=== PATIENT | male | born 1980 | race Caucasian/White ===

== ENCOUNTER 2018-03-18 07:22 | Inpatient (IN) | payer MEDICARE ==
[~2018-03-18] VITALS: Ht 188 cm; Wt 90.7 kg
--- NOTE | ~2018-03-18 | MORECARE ---
CASE MANAGEMENT DISCHARGE SUMMARY PATIENT: RUMA CARROLL UNIT: [id number] ADM DATE: 03/18/18 AGE: 37 : 84 SEX: M ROOM/BED: D.1210 AUTHOR: WAN WILSON PHYSICIAN: REFERRING PHYSICIAN: RENEE MCHUGH MD DATE OF SERVICE: 03/20/18 Discharge Plan Patient Name: RUMA CARROLL [facility] [facility] 1980 Planned Disposition: Home Anticipated Discharge Date: Discharge Date: Expected LOS: Initial Reviewer: [email or web address] Initial Review Date: 03/18/2018 Generated: 03/20/18 6:53 pm DCPIA - Discharge Planning Initial Assessment Updated by [email or web address]: Natali Dick on 03/20/18 5:52 pm * Is the patient Alert and Oriented? Yes * How many steps to enter\exit or inside your home? * PCP No PCP * [facility] [address] * Preadmission Environment Home with Family * ADLs Independent * Equipment Crutch * Other Equipment shower chair * List name and contact numbers for known caregivers / representatives who currently or will assist patient after discharge: afua álvarez mother [phone] * Verbal permission to speak to the caregivers and representatives has been obtained from the patient. Yes * Community resources currently utilized None * Additional services required to return to the preadmission environment? No * Can the patient safely return to the preadmission environment? Yes * Has this patient been hospitalized within the prior 30 days at any hospital? No Patient Name: RUMA CARROLL Page [id number] at 1753 All edits/amendments must be made on the electronic document DICTATION DATE: 03/20/181752 SENIOR MEDIA BUYER: CORA 03/20/181752 RPT#: [id number] DC DATE: STATUS: ADM IN [facility] [address] [place] [address] END OF REPORT
--- NOTE | ~2018-03-18 | MORECARE ---
CASE MANAGEMENT DISCHARGE SUMMARY PATIENT: RUMA CARROLL UNIT: [id number] ADM DATE: 03/18/18 AGE: 37 : 84 SEX: M ROOM/BED: D.1210 AUTHOR: STEVE,DOC PHYSICIAN: REFERRING PHYSICIAN: RENEE MCHUGH MD DATE OF SERVICE: 03/20/18 Discharge Plan Patient Name: RUMA CARROLL Facility: [facility]:[place] : 1980 Planned Disposition: Home Anticipated Discharge Date: Discharge Date: Expected LOS: Initial Reviewer: [email or web address] Initial Review Date: 03/18/2018 Generated: 03/20/18 7:00 pm Comments DCP- Discharge Planning Updated by [email or web address]: Natali Dick on 03/20/18 5:[address] Patient Name: RUMA CARROLL Admission Status: ER Accout number: [id number] Admission Date: 03-18-2018 : 1980 Admission Diagnosis:INFECTION OF AMPUTATION STUMP, LEFT LOWER EXTREMITY Attending: RENEE MCHUGH Current LOS: 2 Anticipated DC Date: Planned Disposition: Home Primary Insurance: MEDICARE A & B Discharge Planning Comments: CM met with patient at bedside after obtaining verbal consent. Patient states he plans on returning home after discharge with his family. Patient denies any discharge needs at this time. Patient request for CM to write letter to ana daniel because he was to appear in court 03/18/18 day of admission. CM did write letter and email it to ana daniel and gave patient copy of letter for his records. CM will continue to follow and assist as needed with discharge planning / needs. Cullet Crusher And Washer: Natali Dick DCPIA - Discharge Planning Initial Assessment Updated by [email or web address]: Natali Dick on 03/20/18 5:52 pm * Is the patient Alert and Oriented? Yes * How many steps to enter\exit or inside your home? * PCP No PCP * [facility] [address] * Preadmission Environment Home with Family * ADLs Independent * Equipment Crutch * Other Equipment shower chair * List name and contact numbers for known caregivers / representatives who currently or will assist patient after discharge: afua álvarez mother [phone] * Verbal permission to speak to the caregivers and representatives has been obtained from the patient. Yes * Community resources currently utilized None * Additional services required to return to the preadmission environment? No * Can the patient safely return to the preadmission environment? Yes * Has this patient been hospitalized within the prior 30 days at any hospital? No Last DP export: 03/20/18 4:53 p Patient Name: RUMA CARROLL Page [id number] at 1800 All edits/amendments must be made on the electronic document DICTATION DATE: 03/20/18 1800 PRODUCTION SUPPORT SPECIALIST: CORA 03/20/18 1800 RPT#: [id number] DC DATE: STATUS: ADM IN [facility] [address] [place] [address] END OF REPORT
--- NOTE | ~2018-03-18 | MORECARE ---
CASE MANAGEMENT DISCHARGE SUMMARY PATIENT: RUMA CARROLL UNIT: [id number] ADM DATE: 03/18/18 AGE: 37 : 84 SEX: M ROOM/BED: D.1210 AUTHOR: STEVEDOC PHYSICIAN: REFERRING PHYSICIAN: RENEE MCHUGH MD DATE OF SERVICE: 03/23/18 Discharge Plan Patient Name: URMA CARROLL Facility: [facility]:[place] : 1980 Planned Disposition: Home Anticipated Discharge Date: Discharge Date: 03/22/2018 Expected LOS: Initial Reviewer: [email or web address] Initial Review Date: 03/18/2018 Generated: 03/23/18 10:25 am Comments DCP- Discharge Planning Updated by [email or web address]: Natali Dick on 03/20/18 5:[address] Patient Name: RUMA CARROLL Admission Status: ER Accout number: [id number] Admission Date: 03-18-2018 : 1980 Admission Diagnosis:INFECTION OF AMPUTATION STUMP, LEFT LOWER EXTREMITY Attending: RENEE MCHUGH Current LOS: 2 Anticipated DC Date: Planned Disposition: Home Primary Insurance: MEDICARE A & B Discharge Planning Comments: CM met with patient at bedside after obtaining verbal consent. Patient states he plans on returning home after discharge with his family. Patient denies any discharge needs at this time. Patient request for CM to write letter to ana daniel because he was to appear in court 03/18/18 day of admission. CM did write letter and email it to ana daniel and gave patient copy of letter for his records. CM will continue to follow and assist as needed with discharge planning / needs. Rubber Goods Supervisor: Natali Dick DCPIA - Discharge Planning Initial Assessment Updated by [email or web address]: Natali Dick on 03/20/18 5:52 pm * Is the patient Alert and Oriented? Yes * How many steps to enter\exit or inside your home? * PCP No PCP * [facility] [address] * Preadmission Environment Home with Family * ADLs Independent * Equipment Crutch * Other Equipment shower chair * List name and contact numbers for known caregivers / representatives who currently or will assist patient after discharge: afua álvarez mother [phone] * Verbal permission to speak to the caregivers and representatives has been obtained from the patient. Yes * Community resources currently utilized None * Additional services required to return to the preadmission environment? No * Can the patient safely return to the preadmission environment? Yes * Has this patient been hospitalized within the prior 30 days at any hospital? No Last DP export: 03/20/18 5:00 p Patient Name: RUMA CARROLL Page [id number] at 0925 All edits/amendments must be made on the electronic document DICTATION DATE: 03/23/18923 TALK SHOW HOST: CORA 03/23/18923 RPT#: [id number] DC DATE:03/22/18 STATUS: DIS IN [facility] [address] [place] [address] END OF REPORT
[2018-03-18 08:37] LABS: ALBUMIN 3.3 g/dL (3.4-5.0); ALKALINE PHOSPHATASE 73 U/L (46-116); ALT (SGPT) 26 U/L (10-68); BILIRUBIN - TOTAL 0.72 mg/dL (0.2-1.3); CALC OSMOLALITY 259 mosm/kg (275-300); CARBON DIOXIDE 27.3 mmol/L (21.0-32.0); CHLORIDE - SERUM 94 mmol/L (98-107); CREATININE - SERUM 0.9 mg/dL (0.6-1.3); GLUCOSE 124 mg/dL (74-106); POTASSIUM - SERUM 4.1 mmol/L (3.5-5.1); PROTEIN - SERUM 7.9 g/dL (6.4-8.2); SODIUM 130 mmol/L (136-145); UREA NITROGEN 8 mg/dL (7-18); eGFR NON AFRICAN AMERICAN > 90 mL/min (90-120)
[2018-03-18 08:41] LABS: BASOPHILS 0.2 % (0-2); EOSINOPHILS 0 % (0-7); HEMOGLOBIN 12.8 g/dL (13.5-17.5); IMMATURE GRANULOCYTES 0.1 % (0-5); LYMPHOCYTES 9.1 % (15-50); MCH 30.5 pg (26.0-34.0); MCHC 34.6 g/dL (31.0-37.0); MCV 88.3 fL (80.0-100.0); MEAN PLATELET VOLUME 9.8 fL (7.4-10.4); MONOCYTES 10.9 % (2-11); NEUTROPHILS 79.7 % (40-80); PLATELET COUNT 268 10x3/uL (130-400); RBC 4.19 10x6/uL (4.20-6.10); WBC 12.1 10x3/uL (4.8-10.8)
[2018-03-18 15:14] VITALS: BP 111/62
[2018-03-18 16:25] VITALS: BP 111/62; BMI 25.7
[2018-03-18 21:21] VITALS: BP 124/68
[2018-03-19 05:16] VITALS: BP 118/78
[2018-03-19 05:25] LABS: BASOPHILS 0.3 % (0-2); EOSINOPHILS 0.2 % (0-7); HEMATOCRIT 34.8 % (42.0-54.0); HEMOGLOBIN 11.9 g/dL (13.5-17.5); IMMATURE GRANULOCYTES 0.2 % (0-5); LYMPHOCYTES 13.5 % (15-50); MCH 30.2 pg (26.0-34.0); MCHC 34.2 g/dL (31.0-37.0); MCV 88.3 fL (80.0-100.0); MEAN PLATELET VOLUME 9.5 fL (7.4-10.4); MONOCYTES 13.1 % (2-11); NEUTROPHILS 72.7 % (40-80); PLATELET COUNT 266 10x3/uL (130-400); RBC 3.94 10x6/uL (4.20-6.10); RDW 13.3 % (11.5-14.5); WBC 9.6 10x3/uL (4.8-10.8)
[2018-03-19 05:36] LABS: CALC OSMOLALITY 269 mosm/kg (275-300); CALCIUM 8.7 mg/dL (8.5-10.1); CARBON DIOXIDE 30.2 mmol/L (21.0-32.0); CHLORIDE - SERUM 99 mmol/L (98-107); CREATININE - SERUM 0.7 mg/dL (0.6-1.3); GLUCOSE 104 mg/dL (74-106); POTASSIUM - SERUM 4.2 mmol/L (3.5-5.1); SODIUM 136 mmol/L (136-145); UREA NITROGEN 7 mg/dL (7-18); eGFR NON AFRICAN AMERICAN > 90 mL/min (90-120)
[2018-03-19 07:45] VITALS: BP 113/68
[2018-03-19 10:03] LABS: % SATURATION 5 % (15-55); IRON 14 ug/dl (35-150); TOTAL IRON BIND CAPACITY 235 ug/dl (260-445); UNSAT IRON BIND CAPACITY 221 ug/dl (150-375)
[2018-03-19 10:26] VITALS: BMI 25.6
[2018-03-19 11:24] VITALS: BP 111/66
[2018-03-19 16:29] VITALS: BP 122/79
[2018-03-19 16:54] LABS: UDS - AMPHET POSITIVE QUAL (NEGATIVE); UDS - BARB NEGATIVE QUAL (NEGATIVE); UDS - BENZO NEGATIVE QUAL (NEGATIVE); UDS - COCAINE NEGATIVE QUAL (NEGATIVE); UDS - OPIATE POSITIVE QUAL (NEGATIVE); UDS - PCP NEGATIVE QUAL (NEGATIVE); UDS - THC POSITIVE QUAL (NEGATIVE)
[2018-03-19 17:22] LABS: APPEARANCE CLEAR (CLEAR); COLOR YELLOW (YELLOW)
[2018-03-19 17:23] LABS: BILIRUBIN NEGATIVE (NEGATIVE); EPITHELIAL CELLS 0-5 /hpf (0-5); GLUCOSE 500 mg/dL (NEGATIVE); KETONE NEGATIVE (NEGATIVE); NITRITE NEGATIVE (NEGATIVE); PROTEIN TRACE mg/dL (NEGATIVE); RED CELLS - URINE 0-5 /hpf (0-5); SPECIFIC GRAVITY 1.015 (1.005-1.020); UROBILINOGEN NORMAL (NORMAL); WHITE CELLS - URINE NSEEN /hpf (0-5)
[2018-03-19 20:55] VITALS: Ht 188 cm; Wt 90.7 kg
[2018-03-19 23:47] VITALS: BP 105/63
[2018-03-20 00:24] VITALS: BP 105/63
[2018-03-20 04:15] VITALS: BP 103/67
[2018-03-20 05:47] LABS: BASOPHILS 0.6 % (0-2); EOSINOPHILS 1.9 % (0-7); HEMATOCRIT 33.7 % (42.0-54.0); HEMOGLOBIN 11.2 g/dL (13.5-17.5); IMMATURE GRANULOCYTES 0.3 % (0-5); LYMPHOCYTES 30.1 % (15-50); MCH 29.7 pg (26.0-34.0); MCHC 33.2 g/dL (31.0-37.0); MCV 89.4 fL (80.0-100.0); MEAN PLATELET VOLUME 9.7 fL (7.4-10.4); MONOCYTES 16.8 % (2-11); NEUTROPHILS 50.3 % (40-80); PLATELET COUNT 300 10x3/uL (130-400); RBC 3.77 10x6/uL (4.20-6.10); RDW 13.4 % (11.5-14.5)
[2018-03-20 06:05] LABS: CALC OSMOLALITY 276 mosm/kg (275-300); CALCIUM 8.5 mg/dL (8.5-10.1); CARBON DIOXIDE 28.8 mmol/L (21.0-32.0); CHLORIDE - SERUM 102 mmol/L (98-107); CREATININE - SERUM 0.8 mg/dL (0.6-1.3); GLUCOSE 116 mg/dL (74-106); POTASSIUM - SERUM 3.7 mmol/L (3.5-5.1); SODIUM 139 mmol/L (136-145); UREA NITROGEN 8 mg/dL (7-18); eGFR NON AFRICAN AMERICAN > 90 mL/min (90-120)
[2018-03-20 06:11] LABS: WBC 6.7 10x3/uL (4.8-10.8)
[2018-03-20 07:31] LABS: FOLATE (FOLIC ACID) - SERUM 15.8 ng/mL (>3.0)
[2018-03-20 07:37] VITALS: BP 106/69
[2018-03-20 10:36] VITALS: BP 112/58
[2018-03-20 16:17] VITALS: BP 109/70
[2018-03-20 20:08] VITALS: BP 117/71
[2018-03-21 00:07] VITALS: BP 125/61
[2018-03-21 05:29] VITALS: BP 110/78
[2018-03-21 06:52] LABS: BASOPHILS 1.4 % (0-2); EOSINOPHILS 3.9 % (0-7); HEMATOCRIT 32.5 % (42.0-54.0); HEMOGLOBIN 10.8 g/dL (13.5-17.5); IMMATURE GRANULOCYTES 0.9 % (0-5); MCH 29.8 pg (26.0-34.0); MCHC 33.2 g/dL (31.0-37.0); MCV 89.5 fL (80.0-100.0); MEAN PLATELET VOLUME 9.5 fL (7.4-10.4); MONOCYTES 14.2 % (2-11); NEUTROPHILS 36.6 % (40-80); PLATELET COUNT 314 10x3/uL (130-400); RBC 3.63 10x6/uL (4.20-6.10); RDW 13.3 % (11.5-14.5); WBC 5.6 10x3/uL (4.8-10.8)
[2018-03-21 07:18] VITALS: BP 103/68
[2018-03-21 07:21] LABS: CALC OSMOLALITY 278 mosm/kg (275-300); CARBON DIOXIDE 27.3 mmol/L (21.0-32.0); CHLORIDE - SERUM 105 mmol/L (98-107); CREATININE - SERUM 0.7 mg/dL (0.6-1.3); GLUCOSE 96 mg/dL (74-106); SODIUM 141 mmol/L (136-145); UREA NITROGEN 6 mg/dL (7-18); eGFR NON AFRICAN AMERICAN > 90 mL/min (90-120)
[2018-03-21 07:26] LABS: POTASSIUM - SERUM 4.4 mmol/L (3.5-5.1)
[2018-03-21 11:14] VITALS: BP 117/63
[2018-03-21 20:09] VITALS: BP 112/74
[2018-03-22 00:03] VITALS: BP 122/74
[2018-03-22 04:45] VITALS: BP 102/54
[2018-03-22 05:07] LABS: BASOPHILS 1.2 % (0-2); EOSINOPHILS 3.5 % (0-7); HEMATOCRIT 31.4 % (42.0-54.0); HEMOGLOBIN 10.6 g/dL (13.5-17.5); IMMATURE GRANULOCYTES 2.1 % (0-5); MCH 29.8 pg (26.0-34.0); MCHC 33.8 g/dL (31.0-37.0); MCV 88.2 fL (80.0-100.0); MEAN PLATELET VOLUME 9.3 fL (7.4-10.4); MONOCYTES 9.4 % (2-11); NEUTROPHILS 39.8 % (40-80); PLATELET COUNT 342 10x3/uL (130-400); RBC 3.56 10x6/uL (4.20-6.10); RDW 13.2 % (11.5-14.5); WBC 6.1 10x3/uL (4.8-10.8)
[2018-03-22 05:43] LABS: CALC OSMOLALITY 275 mosm/kg (275-300); CALCIUM 8.9 mg/dL (8.5-10.1); CARBON DIOXIDE 28.9 mmol/L (21.0-32.0); CHLORIDE - SERUM 104 mmol/L (98-107); CREATININE - SERUM 0.6 mg/dL (0.6-1.3); GLUCOSE 93 mg/dL (74-106); POTASSIUM - SERUM 4.4 mmol/L (3.5-5.1); SODIUM 139 mmol/L (136-145); UREA NITROGEN 6 mg/dL (7-18); eGFR NON AFRICAN AMERICAN > 90 mL/min (90-120)
[2018-03-22 07:05] VITALS: BP 121/77
[2018-03-22 11:11] VITALS: BP 106/64
[2018-03-22] MEDS ORDERED: KEFLEX500 MG PO (11:41)
[2018-03-22 18:07] LABS: AEROBE ID Final report (())
== END 2018-03-22 12:25 | disposition home or self-care (01) | DRG 565 ==
LOC: D.ER 07:22 → D.M3 10:09 → D.EDHOLD 10:09 → D.M3 13:42
PROVIDERS: Family Medicine; Internal Medicine Nephrology
DX: T87.44 Infection of amputation stump, left lower extremity (principal); F17.213 Nicotine dependence, cigarettes, with withdrawal; E87.1 Hypo-osmolality and hyponatremia; Y83.8 Other surgical procedures as the cause of abnormal reaction of the patient, or of later complication, without mention of misadventure at the time of the procedure; D64.9 Anemia, unspecified; F41.9 Anxiety disorder, unspecified; F32.9 Major depressive disorder, single episode, unspecified; B95.0 Streptococcus, group A, as the cause of diseases classified elsewhere